=== PATIENT | male | born 1955 | race Caucasian/White ===

== ENCOUNTER 2021-04-23 07:54 | Outpatient (CLI) | payer BC, OTHER, SELFPAY ==
--- NOTE | ~2021-04-23 | CT_ITS ---
EXAMINATION: CT abdomen pelvis w con INDICATION: Abdominal distention, family history of pancreatic cancer TECHNIQUE: Computed tomographic images of the abdomen and pelvis were obtained after the administrati on of 100 cc of Omnipaque 350 intravenous contrast. The dose-length product (DLP) was 1058.52 mGy-cm. Automated exposure control and iterative reconstruction technique were employed. COMPARISON: None available FINDINGS: There is a 6 mm nodule of the left lower lobe on image 13. There is a small sliding hiatal hernia. The heart size is normal. Punctate calcifications in an otherwise normal spleen likely repres ent healed granulomatous disease. The liver, pancreas, gallbladder, and adrenal glands are normal. Th ere is a 2.6 cm soft tissue attenuation mass of the left kidney. Cysts of the right kidney measure up to 1.3 cm. No pathologically enlarged abdominal or pelvic lymph nodes are identified. There is no fr ee intraperitoneal gas or evidence of bowel obstruction. Colonic diverticulosis is present without ev idence of diverticulitis. There is mild lumbar spondylosis. A small fat-containing umbilical hernia i s noted. IMPRESSION: 1. No CT correlate for the patient's symptoms. 2. Indeterminate left kidney mass which could reflect proteinaceous cyst versus neoplasm. Follow-up b y CT or MRI without and with contrast is recommended. Reviewed, dictated and finalized at location B. [facility] [employer] IMPRESSION: 1. No CT correlate for the patient's symptoms. 2. Indeterminate left kidney mass which could reflect proteinaceous cyst versus neoplasm. Follow-up by CT or MRI without and with contrast is recommended.
[2021-04-23 08:13] LABS: Estimated Glomerular Filt Rate > 60
== END 2021-04-23 07:55 | disposition home or self-care (01) ==
LOC: ANHIMG 07:56
PROVIDERS: PCP Internal Medicine; Visit Provider Internal Medicine Gastroenterology
DX: C25.9 Malignant neoplasm of pancreas, unspecified (principal); R14.0 Abdominal distension (gaseous)
CPT/HCPCS: 74177; Q9967

== ENCOUNTER 2021-05-15 14:02 | Outpatient (CLI) | payer BC, OTHER, SELFPAY ==
--- NOTE | ~2021-05-15 | CT_ITS ---
EXAMINATION: CT abdomen pelvis wo/w con EXAM DATE: 05/15/2021 14:36 INDICATION: Renal mass. TECHNIQUE: Spiral CT of the abdomen without contrast followed by both abdomen and pelvis with 100 cc intravenous Omnipaque 350. Axial, coronal and sagittal images of the abdomen and pelvis were reviewe d. The dose-length product (DLP) for this examination was 1342.68 mGy-cm. The exposure was tailored according to patient size (auto mA exposure control), and iterative reconstruction (ASIR) was used a s additional dose reduction technique. Correlation is made to noncontrast CT abdomen pelvis 04/23/2021. FINDINGS: The liver, spleen, adrenal glands and pancreas are unremarkable. Gallbladder is unremarka ble. No biliary obstruction. The left renal lesion in question on prior CT measures 2.4 cm, does no t demonstrate enhancement. It is a mildly proteinaceous cyst requiring no further evaluation. There i s another cyst in the superior pole of the right kidney. The prostate is unremarkable. The bladder is unremarkable. There is no retroperitoneal or pelvic lymphadenopathy. There are small bilateral inguinal fat-containing hernias.. Small umbilical fat-containing hernia. The appendix is normal. There is moderate descending and sigmoid colonic colonic diverticulosis. The re is no adjacent inflammatory change to suggest diverticulitis. There is small sliding gastroesopha geal hiatal hernia. There is expected amount of colonic stool. No free intraperitoneal gas. The heart is normal in size. There are no pericardial or pleural effusions. The lung bases are unremark able. There are no osteoblastic or osteolytic lesions identified. IMPRESSION: 1. Left renal hemorrhagic cyst. No suspicious masses. 2. Moderate colonic diverticulosis. Reviewed, dictated and finalized at location B.
[2021-05-15 14:27] LABS: Estimated Glomerular Filt Rate > 60
== END 2021-05-15 14:03 | disposition home or self-care (01) ==
PROVIDERS: PCP Internal Medicine; Visit Provider Nurse Practitioner Adult Health
DX: N28.89 Other specified disorders of kidney and ureter (principal); K57.30 Diverticulosis of large intestine without perforation or abscess without bleeding
CPT/HCPCS: 74178; Q9967

== ENCOUNTER 2021-09-04 15:39 | Inpatient (IN) | payer BC, OTHER, SELFPAY ==
[2021-09-04] VITALS (13 sets, daily range): BP systolic 143–179; BP diastolic 78–102; PULSE 69–78; RESP 14–20; TEMP 36.4–36.9; O2SAT 15–100; BMI 33.6
--- NOTE | ~2021-09-04 | XR_ITS ---
EXAMINATION: XR chest 2V Exam Date/Time: 09/04/2021 16:10 CDT HISTORY: cp X 5 DAYS, MIDSTERNAL CP, NO CARDIAC HX, NO LUNG HX Comparison: 02/18/2018. RESULT: Lines, tubes, and devices: None. Lungs and pleura: Clear. Cardiomediastinal silhouette: Stable cardiomediastinal silhouette. Other: No acute osseous or upper abdominal finding. IMPRESSION: No acute cardiopulmonary process. Reviewed, dictated and finalized at location K.
--- NOTE | 2021-09-04 05:11 | ECG_ITS ---
Rate 69 SD 188 QRSd 112 QT 391 QTc 420 --[place]-- P 36 QRS 5 T -2 SINUS RHYTHM INTRAVENTRICULAR CONDUCTION DELAY BORDERLINE T WAVE ABNORMALITY- INFERIOR LEADS BASELINE ARTIFACT- III, AVL, V1 BORDERLINE ECG Electronically Signed On 09-06-2021 9:45:15 CDT by Don Olmos D.O. COMPARED TO ECG 09/04/2021 15:50:56 NO SIGNIFICANT CHANGES MTDD
--- NOTE | 2021-09-04 15:46 | ECG_ITS ---
Measurements Intervals [place] Rate: 71 P: 36 IA: 177 QRS: 14 QRSD: 114 T: -2 QT: 389 QTc: 425 Interpretive Statements SINUS RHYTHM INTRAVENTRICULAR CONDUCTION DELAY BORDERLINE T WAVE ABNORMALITY- INFERIOR LEADS BASELINE ARTIFACT- V1 BORDERLINE ECG Electronically Signed On 09-04-2021 15:55:42 CDT by Don Olmos D.O.
[2021-09-04 16:14] LABS: Basophils Absolute Auto 0.1 K/mm3 (0.0-0.1); Eosinophils Absolute Auto 0.1 K/mm3 (0-0.3); Eosinophils Percent Auto 1.6 % (0-4.4); Hematocrit 46.2 % (42.0-52.0); Hemoglobin 15.4 g/dL (14.0-18.0); Immature Granulocyte Absolute 0.01 K/mm3 (0.00-0.031); Immature Granulocyte Percent A 0.1 % (0-0.5); Lymphocytes Absolute Auto 1.92 K/mm3 (0.9-3.2); Lymphocytes Percent Auto 24.9 % (18.3-44.2); Mean Corpuscular HGB Conc 33.3 g/dl (32-36); Mean Corpuscular Hemoglobin 29.4 pg (26-34); Mean Corpuscular Volume 88.2 fl (80-100); Mean Platelet Volume 8.8 fl (7.4-10.4); Monocytes Absolute Auto 0.6 K/mm3 (0.1-0.6); Monocytes Percent Auto 8.1 % (2.6-8.5); Neutrophils Percent Auto 64.3 % (45.5-73.1); Platelet Count Result 259 k/mm3 (150-375); Red Blood Count 5.24 M/mm3 (4.6-6.20); Red Cell Distribution Width 13.2 % (11.5-14.5); White Blood Count 7.7 K/mm3 (4.5-10.0)
--- NOTE | 2021-09-04 16:17 | ED.CHESTPAIN ---
HPI - Chest Pain General Chief Complaint: Chest Pain Stated Complaint: CP Time Seen by Provider: 09/04/21 16:17 History of Present Illness HPI narrative: The patient is a 65-year-old male with a history hyperlipidemia, borderline hypertension presenting to the emergency department for evaluation of chest pain. Patient reports intermittent chest pressure which at times feels gas-like in nature originating from the upper abdomen and radiating to the chest. Patient states that pain has been intermittent over the past few days but last night was at its worst when he had sharp pain into his left shoulder. Patient denies any current pain at the time of assessment. He reports a stress test many years ago but denies history of heart attack or stent placement. He has borderline hypertension which improved with regular diet changes and exercise although patient states that his diet and exercise regimen has suffered in the past few weeks while they have been entertaining numerous family and friends at their house. Patient reports some associated mild nausea with the pain but denies any radiation of the pain to the neck, jaw. Patient denies associated shortness of breath, palpitations. He denies any recent car or air travel. No history of surgery or immobility. Denies lower extremity swelling. Related Data Allergies Allergy/AdvReac Type Severity Reaction Status Date / Time No Known Allergies Allergy Verified 04/12/21 11:10 Review of Systems Review of Systems: CONSTITUTIONAL: Denies fever, chills, or sweats. EYES: Denies visual changes, redness, or discharge. ENT: Denies rhinorrhea, congestion, sore throat, or otalgia. CARDIOVASCULAR: Denies current chest pain, palpitations, or edema. RESPIRATORY: Denies cough or dyspnea. GASTROINTESTINAL: Denies abdominal pain, nausea, vomiting, or diarrhea. GENITOURINARY: Denies dysuria or hematuria. SKIN: Denies rash or itching. MUSCULOSKELETAL: Denies back pain, joint pain, or myalgia. NEUROLOGIC: Denies headache, numbness, or weakness. [facility] Past Medical History Medical History (Updated 09/04/21 @ 17:40 by Kiera Alvarez MD) Esophageal reflux Familial carcinoma of pancreas Gastroesophageal reflux disease Hyperlipidemia Surgical History Surgical History (Updated 09/04/21 @ 17:25 by Sultana Sanon PA-C) History of eye surgery Correction of strabismus as a child. Family History Family History Father Family history of coronary artery disease, Onset Age: 81 Social History Social History (Updated 09/04/21 @ 17:26 by Sultana Sanon PA-C) Social History: Surrogate medical decision maker: Code status: Full code. Smoking status: Former smoker Smoking end date: 02/17/82 Alcohol intake: current Exam Narrative: GENERAL: Awake, alert, conversant HEAD: Normocephalic, atraumatic. EYES: PERRLA and EOMI. ENT: Nares clear, no rhinorrhea or epistaxis. Mucous membranes moist. NECK: Supple. CHEST: No respiratory distress, breathing even and non labored, no chest wall tenderness HEART: Regular rate, sinus rhythm ABDOMEN:Non distended, non tender EXTREMITIES: Normal range of motion. No edema, induration or erythema bilaterally. SKIN: Warm, dry, no rash. NEURO:No focal deficits. Alert and oriented x3 Course Vital Signs Vital signs: Vital Signs Temperature 36.4 C 09/04/21 15:41 Pulse Rate 76 09/04/21 15:41 Respiratory Rate 16 09/04/21 15:41 Blood Pressure 179/95 H 09/04/21 15:41 Pulse Oximetry 99 09/04/21 15:41 Oxygen Delivery Room Air 09/04/21 15:41 Temperature 36.4 C 09/04/21 15:41 Pulse Rate 76 09/04/21 15:41 Respiratory Rate 16 09/04/21 15:41 Blood Pressure 179/95 H 09/04/21 15:41 Pulse Oximetry 99 09/04/21 15:41 Oxygen Delivery Room Air 09/04/21 15:41 MDM - Chest Pain MDM Narrative Medical decision making narrative: Patient presenting to the e
[2021-09-04 16:24] LABS: INR 1.1; Prothrombin Time 13.4 Seconds (11.1-14.7)
[2021-09-04 16:25] LABS: Partial Thromboplastin Time 32.7 SECONDS (22.3-36.8)
[2021-09-04 16:28] LABS: Alanine Aminotransferase 19 U/L (6-50); Albumin Level 4.8 g/dL (3.5-5.1); Alkaline Phosphatase 73 U/L (38-126); Anion Gap 6 mmol/L (8-16); Aspartate Amino Transferase 28 U/L (17-59); Bilirubin,Total 0.9 mg/dL (0.2-1.3); Blood Urea Nitrogen 15 mg/dL (9-20); Calcium 9.1 mg/dL (8.4-10.2); Carbon Dioxide 28 mmol/L (22-30); Chloride 106 mmol/L (98-107); Estimated CRCL calculation 90 ml/min; Estimated Glomerular Filt Rate > 60; Glucose 104 mg/dL (65-110); Lipase 85 U/L (23-300); Potassium 3.8 mmol/L (3.4-5.0); Sodium 140 mmol/L (137-145)
[2021-09-04] MEDS: ASPIRIN 81 MG CHEWABLE TABLET 324 MG PO (16:41)
[2021-09-04] MEDS: HEPARIN SODIUM 5,000 UNITS/ML VIAL 4000 UNITS IV PUSH (17:12)
[2021-09-04] MEDS: HEPARIN SOD/D5W 100 UNITS/ML 25,000 UNITS/250 ML BAG 10 UNITS IV CONT (17:12)
--- NOTE | 2021-09-04 17:30 | PM.IMHP ---
H&P: HPI History of Present Illness Date/Time: 09/04/21 17:30 Chief Complaint: Chest pain. Narrative: This is a pleasant 65-year-old male with history of elevated blood pressure and probable underlying hypertension, hyperlipidemia, and GERD and with a history of severe esophageal erosions and ulcerations on EGD in 2008 who presented to the emergency department from home for evaluation of chest pain. Yesterday while working out in the yard he developed mild tightness in the mid substernal chest region which resolved with rest and later that evening he had some mild discomfort in his left axilla as well. Initially he thought his symptoms may be related to indigestion as his GERD symptoms have been worse since the weekend, which he attributes to having several large meals at family gatherings. This morning he was on the treadmill and approximately 10 minutes into his walk he once again developed mid chest tightness associated with weakness and sweats. The symptoms are not typical of his indigestion and he came in today for evaluation. EKG done on arrival to the ED was reviewed and he has some inverted T waves in inferior leads and his initial troponin came back elevated at 0.100. He is now being admitted in this setting for further evaluation and cardiology consultation. He has no known history of coronary artery disease and he has had several stress tests over the years due to positive family history, all of which have been negative. Prior to the last couple of days he has never had chest pain with exertion. He denies syncope and presyncope. No pleuritic pain or significant shortness of breath. He denies nausea and vomiting. Review of Systems Review of Systems: 12 systems were reviewed. No recent cold or flu symptoms. He received 3 COVID vaccinations thus far. No known COVID exposure. He does snore and is occasionally sleepy during the day, but no overt hypersomnolence. No witnessed apneic episodes. No melena or hematochezia. He denies significant abdominal pain and bloating. No claudication. Except as documented, all other systems were reviewed and are negative. [facility] Past Medical History Medical History Gastroesophageal reflux disease Hyperlipidemia Surgical History Surgical History History of colonoscopy (09/2007) Sigmoid diverticulosis and small internal hemorrhoids History of esophagogastroduodenoscopy (11/2008) Erosive esophagitis with grade 4 ulcerations. Negative for H. pylori and Purcell esophagus. History of eye surgery Correction of strabismus as a child. History of vasectomy Family History Family History Father Coronary artery disease, Onset Age: 48 First [place] at age 48. at age 82. Sibling Heart disease Sister who is 5 years older has a stent. Mother Old age in her 90s Social History Social History (Updated 09/05/21 @ 00:03 by Sultana Sanon PA-C) Social History: Surrogate medical decision maker: Brisa Mojicat, spouse. Code status: Full code. Smoking packs per day: 0.75 Smoking cigarettes per day: 15.0 Years smoked: 20 Smoking pack-years: 15.00 Smoking status: Former smoker Smoking end date: 02/17/82 Alcohol intake: current Drinks per week: 1 Substance use: never Living arrangements: with family Additional living arrangements comments: The patient lives with his in [place]. 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 Spiritual care concerns: No Meds Home Medications and Allergies Home Medications Medication Instructions Recorded Confirmed Type pantoprazole 40 mg tablet,delayed 40 mg PO QA #90 tabs 04/12/21 09/04/21 Rx release atorvastatin 20 mg tablet 30 mg PO DAILY 09/04/21
--- NOTE | 2021-09-04 18:11 | PM.CNCAR ---
Assessment and Plan Assessment and plan (1) Non-ST elevation DE (NSTEMI): Code(s): I21.4 - Non-ST elevation (NSTEMI) myocardial infarction Status: Acute Assessment and Plan: Patient presents with ACS, symptoms of concern for unstable angina. Minor EKG changes Elevated troponin Started on heparin, aspirin and metoprolol after discussion with Dr. Alvarez Counseled patient and his about our concerns with his ACS and possible outcomes. Recommend cardiac catheterization for tomorrow morning. Discussed possibility of medical therapy, stent, lesions that are not amenable to stenting that may require special equipment or heart surgery, etc, depending on the patient's anatomy. Reviewed possible risks and complications with patient including breathing problems, bleeding problems, blood vessel problems, unanticipated surgery, allergic reactions, kidney problems, CVA, DE, and among others. Discussed possibility of stenting and possible need for DAPT. Discussed the possibility that if DAPT is interrupted stent thrombosis can occur resulting in heart attack and . Patient understands risks and desires to proceed. Patient advised to call the nurse if he has further problems overnight. TNG and morphine if needed overnight EKG in the a.m. Emergent cardiac catheterization if the patient has ongoing chest discomfort (2) Elevated blood pressure reading in office without diagnosis of hypertension: Code(s): R03.0 - Elevated blood-pressure reading, without diagnosis of hypertension Status: Acute Assessment and Plan: Likely has hypertension. Started on metoprolol. (3) Hyperlipidemia: Code(s): E78.5 - Hyperlipidemia, unspecified Status: Chronic Assessment and Plan: Currently taking atorvastatin 20 mg daily. 01/2021 LDL cholesterol was 106 Increase to 80 mg daily History of Present Illness History of Present Illness Consult date/time: 09/04/21 18:11 Reason For Visit: NSTEMI Narrative: Estuardo Carroll is a 65-year-old male whom we were asked to see at request of Dr. Alvarez for our advice and opinion regarding his elevated troponins and chest discomfort in consultation. Mr. Carroll has had family from out of town, and fell he over ate, having a lot of gas, heartburn and chest discomfort recently which he thought was GERD. However, this discomfort worsened. When he walked on the treadmill yesterday, he developed more discomfort and pressure in his chest as well as weakness which was quite unusual and made him stop. It resolved. He did some yard work in the same thing happened. Last night while in bed he had some more discomfort which radiated to the axilla. It resolved after a little while. This morning he tried to walk on the treadmill again and had the same problems, so came to the emergency room for further evaluation. No shortness of breath or diaphoresis. The patient has a history hyperlipidemia and borderline hypertension. He has a history of GERD and esophageal problems as well, but no GI bleeding. His father had an DE when he was 48 years old. Review of Systems Constitutional: Constitutional: Denies fever(s) Eyes: Eyes: Denies blurry vision ENT: Denies epistaxis Cardiovascular: Cardiovascular: Reports chest pain, Denies pedal edema, Denies lightheadedness and Denies dyspnea Respiratory: Respiratory: Denies chest congestion and Denies dyspnea Gastrointestinal: Gastrointestinal: Denies abdominal pain, Reports bloating, Denies hematochezia, Reports heartburn and Denies nausea Comments: History of esophageal problems on ulcers but no actual bleeding. Genitourinary: Genitourinary: Denies hematuria Musculoskeletal: Musculoskeletal: Reports no additional musculoskeletal
--- NOTE | 2021-09-04 18:22 | ADMGEN ---
This patient, Estuardo Carroll, was admitted to IMU Room 211-01 at 1820. Patient/family oriented to hospital policies and general routines including ID bracelet, bed and alarms, visiting hours, pain management, procedures, bathroom and other care routines, personal items, smoking policy, room service/diet, and visiting hours. Information on how to activate the Rapid Response Team has been discussed. Patient/Family are encouraged to report perceived risks to care and to ask questions if they do not understand what they are told or what they should do.
[2021-09-04 18:23] LABS: SARS-CoV-2 RNA PCR Negative
[2021-09-04 20:34] LABS: Troponin I 0.134 ng/mL (0.000-0.034)
[2021-09-04] MEDS: METOPROLOL TARTRATE 25 MG TABLET PO (21:20)
[2021-09-04 22:55] LABS: Partial Thromboplastin Time 74.2 SECONDS (22.3-36.8)
[2021-09-04 23:07] LABS: Troponin I 0.156 ng/mL (0.000-0.034)
[2021-09-05] VITALS (34 sets, daily range): BP systolic 119–164; BP diastolic 65–94; PULSE 49–84; RESP 13–17; TEMP 36.1–36.7; O2SAT 15–98
[2021-09-05 05:15] LABS: Basophils Absolute Auto 0.1 K/mm3 (0.0-0.1); Eosinophils Absolute Auto 0.1 K/mm3 (0-0.3); Eosinophils Percent Auto 1.3 % (0-4.4); Hematocrit 42.8 % (42.0-52.0); Hemoglobin 14.6 g/dL (14.0-18.0); Immature Granulocyte Absolute 0.03 K/mm3 (0.00-0.031); Immature Granulocyte Percent A 0.4 % (0-0.5); Lymphocytes Absolute Auto 2.12 K/mm3 (0.9-3.2); Lymphocytes Percent Auto 25.8 % (18.3-44.2); Mean Corpuscular HGB Conc 34.1 g/dl (32-36); Mean Corpuscular Hemoglobin 29.9 pg (26-34); Mean Corpuscular Volume 87.5 fl (80-100); Mean Platelet Volume 9.2 fl (7.4-10.4); Monocytes Absolute Auto 0.7 K/mm3 (0.1-0.6); Monocytes Percent Auto 7.9 % (2.6-8.5); Neutrophils Absolute Auto 5.2 K/mm3 (1.3-6.7); Neutrophils Percent Auto 63.6 % (45.5-73.1); Platelet Count Result 248 k/mm3 (150-375); Red Blood Count 4.89 M/mm3 (4.6-6.20); White Blood Count 8.2 K/mm3 (4.5-10.0)
[2021-09-05 05:20] LABS: Anion Gap 6 mmol/L (8-16); Blood Urea Nitrogen 16 mg/dL (9-20); Calcium 9.2 mg/dL (8.4-10.2); Carbon Dioxide 29 mmol/L (22-30); Chloride 104 mmol/L (98-107); Estimated CRCL calculation 89 ml/min; Estimated Glomerular Filt Rate > 60; Glucose 97 mg/dL (65-110); Magnesium 2.2 mg/dL (1.6-2.3); Sodium 139 mmol/L (137-145)
[2021-09-05 05:23] LABS: Partial Thromboplastin Time 61.6 SECONDS (22.3-36.8)
[2021-09-05] MEDS: HEPARIN SODIUM 5,000 UNITS/ML VIAL 3500 UNITS IV PUSH (05:59)
--- NOTE | 2021-09-05 08:00 | ECG_ITS ---
Measurements Intervals [place] Rate: 61 P: 49 [place]: 192 QRS: 22 QRSD: 108 T: -8 QT: 422 QTc: 426 Interpretive Statements SINUS RHYTHM BORDERLINE T WAVE ABNORMALITY- INFERIOR LEADS BASELINE ARTIFACT- III, AVF BORDERLINE ECG Electronically Signed On 09-05-2021 22:16:07 CDT by Don Olmos D.O.
[2021-09-05] MEDS: ASPIRIN 81 MG CHEWABLE TABLET PO (08:38)
[2021-09-05] MEDS: METOPROLOL TARTRATE 25 MG TABLET PO (08:38)
[2021-09-05] MEDS: ATORVASTATIN 40 MG TABLET 80 MG PO (08:38)
[2021-09-05] MEDS: PANTOPRAZOLE 40 MG TABLET PO (08:39)
[2021-09-05] MEDS: SODIUM CHLORIDE 0.9% IV 500 ML 100 ML IV CONT (08:45)
--- NOTE | 2021-09-05 09:21 | WPDHPUPDATE1 ---
History and Physical Update Update Date/Time: 09/05/21 09:21 History and Physical has been reviewed, including an updated exam of the patient. Admitted with ACS/non STEMI. One episode of very slight chest pressure through the night but otherwise doing well. Remains on heparin drip. Troponins up to 0.1 6. EKG without new changes. Otherwise, There are NO changes in the patient's condition. Patient is anxious, several questions. Risks, benefits, and alternatives have been discussed and questions answered. Patient agrees to proceed with procedure.
--- NOTE | 2021-09-05 09:22 | WPDMODSED ---
Moderate Sedation Note-Pt Data Patient Data Diagnosis: NSTEMI Present Complaint: 65-year-old male admitted with indigestion and chest pressure. Elevated troponins up to 0.16. Started on heparin drip for non-STEMI. Procedure to be performed/Plan: Conscious sedation Cardiac catheterization Possible PCI Allergies Allergy/AdvReac Type Severity Reaction Status Date / Time No Known Allergies Allergy Verified 04/12/21 11:10 Home Medications Medication Instructions Recorded Confirmed Type pantoprazole 40 mg tablet,delayed 40 mg PO QAM #90 tabs 04/12/21 09/04/21 Rx release atorvastatin 20 mg tablet 30 mg PO DAILY 09/04/21 09/04/21 History Current Medications: Active Medications Acetaminophen (Acetaminophen 325 Mg Tablet) 650 mg PO Q4H PRN PRN Reason: Pain Rated 1-3 Aspirin (Aspirin 81 Mg Chewable Tablet) 81 mg PO DAILY@0800 [facility] Last Admin: 09/05/21 08:38 Dose: 81 mg Atorvastatin Calcium (Atorvastatin 40 Mg Tablet) 80 mg PO DAILY [facility] Last Admin: 09/05/21 08:38 Dose: 80 mg Heparin Sodium (Porcine) (Heparin Sodium 5,000 Units/Ml Vial) 4,000 units IV PUSH PRN PRN PRN Reason: aPTT less than 55 seconds Heparin Sodium (Porcine) (Heparin Sodium 5,000 Units/Ml Vial) 3,500 units IV PUSH PRN PRN PRN Reason: aPTT 55 - 70 seconds Last Admin: 09/05/21 05:59 Dose: 3,500 units Heparin Sodium/Dextrose (Heparin Sodium/D5w 100 Units/Ml) 25,000 units in 250 mls @ 12 mls/hr IV CONT .[id number] [facility]; Protocol Last Titration: 09/05/21 05:59 Dose: 1,200 units/hr, 12 mls/hr Sodium Chloride (Normal Saline Iv) 500 mls @ 100 mls/hr IV CONT .Q5H [facility] Last Admin: 09/05/21 08:45 Dose: 100 mls/hr Metoprolol Tartrate (Metoprolol Tartrate 25 Mg Tablet) 25 mg PO Q12HR [facility] Last Admin: 09/05/21 08:38 Dose: 25 mg Morphine Sulfate (Morphine Sulfate (*Crx) 2 Mg/Ml Inj) 2 mg IV PUSH Q4H PRN PRN Reason: Pain Rated 4-6 Nitroglycerin (Nitroglycerin Sl 0.4 Mg Tablet) 0.4 mg SUBLINGUAL Q5MIN PRN PRN Reason: Chest Pain Ondansetron HCl (Ondansetron Inj 4 Mg/2 Ml Vial) 4 mg IV PUSH Q4H PRN PRN Reason: Nausea Pantoprazole Sodium (Pantoprazole 40 Mg Tablet) [facility] [place] Admin: 09/05/21 08:39 Dose: 40 mg Sedation/Anesthesia: No previous sedation/anesthesia problems (including family history). [facility] Past Medical History Medical History Gastroesophageal reflux disease Hyperlipidemia Surgical History Surgical History History of colonoscopy (09/2007) Sigmoid diverticulosis and small internal hemorrhoids History of esophagogastroduodenoscopy (11/2008) Erosive esophagitis with grade 4 ulcerations. Negative for H. pylori and Purcell esophagus. History of eye surgery Correction of strabismus as a child. History of vasectomy Family History Family History Father Coronary artery disease, Onset Age: 48 First [place] at age 48. at age 82. Sibling Heart disease Sister who is 5 years older has a stent. Mother Old age in her 90s Social History Social History Social History: Surrogate medical decision maker: Brisa Carroll, spouse. Code status: Full code. Smoking packs per day: 0.75 Smoking cigarettes per day: 15.0 Years smoked: 20 Smoking pack-years: 15.00 Smoking status: Former smoker Smoking end date: 02/17/82 Alcohol intake: current Drinks per week: 1 Substance use: never Living arrangements: with family Additional living arrangements comments: The patient lives with his in [place]. 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 Spiritual care concerns: No Mod Sed Physical Exam Physical Exam Pre Procedural Exam: Normal: Appearance, Eyes, Ears
--- NOTE | 2021-09-05 09:45 | PM.IMPN ---
Progress Note: A&P Assessment and Plan (1) Non-ST elevated myocardial infarction: Code(s): I21.4 - Non-ST elevation (NSTEMI) myocardial infarction Status: Acute Assessment and Plan: Symptoms concerning for angina. EKG shows minor T-wave changes as detailed above. Given elevated troponin level he has been started on a heparin drip as well as aspirin and metoprolol. Case discussed with Dr. Valderrama and she is recommending cardiac catheterization in the morning and he will be NPO after midnight. Nitroglycerin and morphine available if needed. Patient advised to alert the nurse if he has worsening chest pain or with any other concerns this evening. 09/05: Patient with NSTEMI, heart catheterization plan today, appreciate cardiology consultation, continue heparin drip Update: Patient had stent of RCA, heparin drip off, Cardiology ordered aspirin 81 mg daily, Lipitor 80 mg daily, Plavix 75 mg daily (2) Elevated blood pressure reading: Code(s): R03.0 - Elevated blood-pressure reading, without diagnosis of hypertension Status: Acute Assessment and Plan: Likely has underlying hypertension. He has been started on metoprolol as above and we will monitor blood pressures closely. 09/05: Blood pressure reasonably controlled, continue to monitor (3) Hyperlipidemia: Code(s): E78.5 - Hyperlipidemia, unspecified Status: Chronic Assessment and Plan: Continue atorvastatin at increased dose of 80 mg daily. (4) Gastroesophageal reflux disease: Code(s): K21.9 - Gastro-esophageal reflux disease without esophagitis Status: Acute Assessment and Plan: Continue PPI. Plan Full code DVT prophylaxis with heparin drip Subjective Date/time seen: 09/05/21 09:45 Interval history: Saw patient after catheterization. He states he has no chest pain, no shortness of breath. He feels well.? No nausea, vomiting or diarrhea.? No fevers or chills. Review of Systems Review of Systems: ?12 point review of systems was assessed and was negative except as noted in the HPI Exam Narrative: General:??No acute distress, alert and oriented per baseline HEENT:? Atraumatic, normocephalic, mucous membranes moist CV:? Regular rate and rhythm, S1, S2 Lungs:? Clear to auscultation bilaterally, no rales or crackles noted, no wheezes, good air entry Abdomen:? Soft, nontender, nondistended Extremities:? Normal to inspection Skin:? No rashes noted, no lesions or wounds seen Psych:? Euthymic, normal affect Objective Data Vital Signs Vital Signs: Vital Signs - 24 hr 09/04/21 15:41 09/04/21 16:30 09/04/21 16:31 Temperature 97.6 F Pulse Rate 76 73 69 Respiratory Rate 16 20 15 Blood Pressure 179/95 H 154/93 H Pulse Oximetry 99 100 Oxygen Delivery Room Air 09/04/21 16:45 09/04/21 17:00 09/04/21 17:32 Temperature Pulse Rate 76 72 Respiratory Rate 15 16 Blood Pressure Pulse Oximetry 98 98 99 Oxygen Delivery 09/04/21 17:45 09/04/21 18:00 09/04/21 18:01 Temperature Pulse Rate Respiratory Rate Blood Pressure 178/102 H Pulse Oximetry 99 97 99 Oxygen Delivery 09/04/21 18:20 09/04/21 18:20 09/04/21 20:00 Temperature 97.7 F 98.4 F Pulse Rate 75 72 71 Respiratory Rate 14 Blood Pressure 151/91 H 143/78 H Pulse Oximetry 100 15 L Oxygen Delivery 09/04/21 21:20 09/04/21 20:00 09/04/21 22:00 Temperature Pulse Rate 78 74 74 Respiratory Rate Blood Pressure Pulse Oximetry Oxygen Delivery 09/04/21 20:00 09/05/21 00:00 09/05/21 00:00 Temperature Pulse Rate 74 74 58 L Respiratory Rate 14 14 Blood Pressure Pulse Oximetry 15 L 15 L Oxygen Delivery Room Air Room Air 09/05/21 00:00 09/05/21 02:00 09/05/21 04:00 Temperature 98.1 F Pulse Rate 61 59 L 54 L Respiratory Rate 15 Blood Pressure 147/85 H Pulse Oximetry 98 Oxygen Delivery 09/05/21 04:00 09/05/21 04:00
--- NOTE | 2021-09-05 10:51 | PC.NURSE ---
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 Family at bedside
--- NOTE | 2021-09-05 11:49 | PM.OP ---
Procedure Note - Brief Procedure Note - Brief Date of procedure: 09/05/21 Pre-op diagnosis: NSTEMI ACS, NSTEMI Post-op diagnosis: Same Procedure performed: Conscious sedation Left heart cath Description of procedure: Uneventful cardiac cath Surgeon: Flores Valderrama MD Findings: 95% stenosis of large prox/mid RCA Disease of mid LAD Mild inferior wall hypokinesis Plan: RCA stent Medical tx of residual dz
--- NOTE | 2021-09-05 11:51 | WPDCARDPROC ---
Cardiac Cath Procedure Note Date of procedure:: 09/05/21 Performing physician:: Flores Valderrama MD Indication:: ACS, non-STEMI Brief clinical history:: 65-year-old male admitted with unstable angina, and non-STEMI. Procedure Procedure performed:: Conscious sedation Left heart catheterization Selective coronary angiography Left ventriculography Sedation/Medication given:: Conscious sedation: The patient has no known prior history of adverse affects of conscious sedation. Oropharynx was clear. The patient is deemed a good candidate for conscious sedation. Conscious sedation began at: 1106 Conscious sedation ended at: 1131 Total conscious sedation time: 25 min Medications: Versed 1 mg, fentanyl 50 mcg IVP The patient had continuous hemodynamic monitoring, and was also continuously monitored by: Miquel Samuels RN The patient tolerated conscious sedation well. Access site:: Right femoral artery Estimated blood loss:: 5 cc Procedure note:: Catheters: 5 Kuwaiti arterial sheath, 5 Kuwaiti 4 cm right and left Wallace catheters, 5 Kuwaiti pigtail catheter 6 [place]i arterial she Detailed procedure: After informed consent the patient brought to the laboratory secretary and the right femoral area was prepped and draped in the usual fashion. After conscious sedation and local anesthesia the right femoral artery was punctured and cannulated with the arterial sheath. Selective Coronary angiography was performed with the coronary catheters in multiple projections. These were withdrawn. The pigtail catheter was advanced into the central circulation and left ventricle for pressure measurements and left ventriculography which was performed in the FLOYD projection. This was withdrawn. The images were reviewed with the patient and with Dr. Boswell. I recommended proceeding with PCI of the RCA which is detailed in a separate report. Findings:: Pressures: Post angiographic aortic pressure was 140/70 and LV was 140/20 mmHg. Left coronary artery: There was calcified plaque along the proximal and mid Left anterior descending and circumflex vessels. The left main was widely patent. The mid Left anterior descending had a long segment of diffuse moderate stenosis. The diagonal was large vessel, almost as large as the Left anterior descending, and had 40% stenosis in its mid segment. A ramus branch was free of significant disease. The circumflex basically gave rise to just a very large 1st obtuse marginal which had 40% stenosis of the proximal and mid segments. There were [id number] collaterals noted. Right coronary artery: The large dominant right coronary artery had proximal vessel calcification. There was a very irregular complex although short lesion in the proximal segment of 95% stenosis. Left ventriculogram: Left ventriculography revealed mild hypokinesis of the inferior wall. Ejection fraction is 60%. Conclusion:: 95% stenosis of the proximal right coronary artery Left to right collaterals Moderate long diffuse stenosis of the mid Left anterior descending Calcification of the proximal coronary vessels Mild disease elsewhere Mild left ventricular dysfunction with hypokinesis of the inferior wall, ejection fraction 60% Assessment and Plan Assessment and plan (1) Non-ST elevation MA (NSTEMI): Code(s): I21.4 - Non-ST elevation (NSTEMI) myocardial infarction Status: Acute Plan Proceeded with angioplasty and stenting of the culprit right coronary artery with Dr. Boswell. Will treat the remaining disease aggressively medically, and perhaps re-evaluate the Left anterior descending disease with an outpatient stress test. However, the LAD may not be easily amenable to PCI as the stenotic area is long and the LAD is a narrow caliber vessel. Additional Plan as above
--- NOTE | 2021-09-05 11:59 | ECG_ITS ---
Measurements Intervals [place] Rate: 52 P: 49 WI: 194 QRS: 33 QRSD: 110 T: -9 QT: 445 QTc: 415 Interpretive Statements SINUS BRADYCARDIA T WAVE ABNORMALITY IN INFERIOR LEADS- CONSIDER ISCHEMIA ABNORMAL ECG Electronically Signed On 09-05-2021 22:34:08 CDT by Don Olmos D.O.
--- NOTE | 2021-09-05 12:03 | WPDCARDPROC ---
Cardiac Cath Procedure Note Date of procedure:: 09/05/21 Performing physician:: Michael Boswell MD Indication:: acute coronary syndrome Brief clinical history:: this is a 65-year-old patient without previous knowledge of coronary disease presents to the hospital acute onset of exertional chest pain. There is evidence of acute coronary syndrome with elevated troponin. Angiography was just completed in this laboratory a demonstrating a culprit lesion to be a high-grade proximal stenosis large dominant right coronary artery. Procedure Procedure performed:: PCI(SARIAH) to the proximal RCA Sedation/Medication given:: no additional sedation Access site:: right femoral artery Estimated blood loss:: minimal Procedure note:: the patient was in the labor and delivery nurse on the table from the just completed angiography. A 6 Syriac sheath was in the right femoral artery. The patient was then systemically anticoagulated bolus and infusion of Angiomax. He received 600 mg of clopidogrel orally. Following this I engaged the right coronary artery using a 6 Syriac JR4 guiding catheter. A 0.014 BMW wire was used to traverse the stenosis and advanced easily into the distal RPL branch. Following this the target lesion was pre-dilated using a 3.5 x 20 mm Vinod balloon at nominal pressure for 60 seconds. Following this there was approximately 20% residual stenosis. The target lesion was then treated with a 4 x 26 mm Orsiro sirolimus eluting stent deployed at 12 atmospheres with no residual stenosis no disruption dissection or distal embolization. Findings:: Successful PCI of proximal RCA lesion as detailed above Conclusion:: patient to recovery following PCI dual anti-platelet therapy, beta-jordan and statin will be continued. Patient has moderate left coronary lesions as described above in the labor and delivery nurse note which will be treated medically at this time. Michael Boswell MD [facility]
--- NOTE | 2021-09-05 16:30 | PC.NURSE ---
Pt returned from sugar laboratory assistant, via bed
[2021-09-05] MEDS: SODIUM CHLORIDE 0.9% IV 1,000 ML 125 ML IV CONT (16:32)
--- NOTE | 2021-09-05 16:43 | SUR.PHASEII ---
Pt resting comfortably in bed, hematoma site soft, 3+ pedal pulse. Dinner tray orders, report given to Kenzie SALOMON. Pt denies pain, respirations even and unlabored, VSS, pt voided 25ml urine prior to transfer to hospital room.
[2021-09-06] VITALS (8 sets, daily range): BP systolic 122–137; BP diastolic 69–76; PULSE 53–69; RESP 15–16; TEMP 36.5–37.1; O2SAT 97–99
[2021-09-06 04:54] LABS: Basophils Absolute Auto 0.1 K/mm3 (0.0-0.1); Basophils Percent Auto 0.9 % (0.2-1.2); Eosinophils Absolute Auto 0.1 K/mm3 (0-0.3); Eosinophils Percent Auto 1.6 % (0-4.4); Hematocrit 42.5 % (42.0-52.0); Hemoglobin 14.3 g/dL (14.0-18.0); Immature Granulocyte Absolute 0.02 K/mm3 (0.00-0.031); Immature Granulocyte Percent A 0.2 % (0-0.5); Lymphocytes Absolute Auto 1.52 K/mm3 (0.9-3.2); Lymphocytes Percent Auto 17.7 % (18.3-44.2); Mean Corpuscular HGB Conc 33.6 g/dl (32-36); Mean Corpuscular Hemoglobin 29.9 pg (26-34); Mean Corpuscular Volume 88.9 fl (80-100); Mean Platelet Volume 8.6 fl (7.4-10.4); Monocytes Absolute Auto 0.6 K/mm3 (0.1-0.6); Monocytes Percent Auto 7.3 % (2.6-8.5); Neutrophils Absolute Auto 6.2 K/mm3 (1.3-6.7); Neutrophils Percent Auto 72.3 % (45.5-73.1); Platelet Count Result 216 k/mm3 (150-375); Red Blood Count 4.78 M/mm3 (4.6-6.20); Red Cell Distribution Width 12.9 % (11.5-14.5); White Blood Count 8.6 K/mm3 (4.5-10.0)
[2021-09-06 05:11] LABS: Alanine Aminotransferase 15 U/L (6-50); Alkaline Phosphatase 60 U/L (38-126); Anion Gap 4 mmol/L (8-16); Aspartate Amino Transferase 26 U/L (17-59); Blood Urea Nitrogen 16 mg/dL (9-20); Calcium 8.6 mg/dL (8.4-10.2); Carbon Dioxide 29 mmol/L (22-30); Chloride 103 mmol/L (98-107); Estimated CRCL calculation 80 ml/min; Estimated Glomerular Filt Rate > 60; Glucose 94 mg/dL (65-110); Potassium 4.1 mmol/L (3.4-5.0); Sodium 136 mmol/L (137-145)
[2021-09-06] MEDS: ASPIRIN 81 MG CHEWABLE TABLET PO (08:23)
[2021-09-06] MEDS: ATORVASTATIN 40 MG TABLET 80 MG PO (08:23)
[2021-09-06] MEDS: PANTOPRAZOLE 40 MG TABLET PO (08:23)
[2021-09-06] MEDS: CLOPIDOGREL BISULFATE 75 MG TABLET PO (08:23)
[2021-09-06] MEDS: METOPROLOL TARTRATE 25 MG TABLET PO (08:23)
--- NOTE | 2021-09-06 10:10 | PM.DS ---
DS: Admitting Diagnosis Discharge Date September 06, 2021 Admitting Diagnosis chest pain DS: Discharge Diagnosis Discharge Diagnosis (1) Non-ST elevated myocardial infarction: Code(s): I21.4 - Non-ST elevation (NSTEMI) myocardial infarction Status: Acute Assessment and Plan: Symptoms concerning for angina. EKG shows minor T-wave changes as detailed above. Given elevated troponin level he has been started on a heparin drip as well as aspirin and metoprolol. Case discussed with Dr. Valderrama and she is recommending cardiac catheterization in the morning and he will be NPO after midnight. Nitroglycerin and morphine available if needed. Patient advised to alert the nurse if he has worsening chest pain or with any other concerns this evening. 09/05: Patient with NSTEMI, heart catheterization plan today, appreciate cardiology consultation, continue heparin drip Update: Patient had stent of RCA, heparin drip off, Cardiology ordered aspirin 81 mg daily, Lipitor 80 mg daily, Plavix 75 mg daily, metoprolol 25 mg twice daily 09/06: Heart catheterization yesterday with PCI to RCA, cardiology recommending discharging on dual anti-platelet therapy, high-intensity statin, beta-jordan, due to bradycardia, patient will be switched to metoprolol succinate 12.5 mg q.h.s. (2) Elevated blood pressure reading: Code(s): R03.0 - Elevated blood-pressure reading, without diagnosis of hypertension Status: Acute Assessment and Plan: Likely has underlying hypertension. He has been started on metoprolol as above and we will monitor blood pressures closely. 09/05: Blood pressure reasonably controlled, continue to monitor (3) Hyperlipidemia: Code(s): E78.5 - Hyperlipidemia, unspecified Status: Chronic Assessment and Plan: Continue atorvastatin at increased dose of 80 mg daily. (4) Gastroesophageal reflux disease: Code(s): K21.9 - Gastro-esophageal reflux disease without esophagitis Status: Acute Assessment and Plan: Continue PPI. 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 He tolerated the procedure well and was discharged in good condition with close outpatient follow-up and dual anti-platelet therapy, high-intensity statin, beta-jordan. See above for details. Time Spent with Patient Time attestation: Total time spent providing and/or coordinating discharge services: Exam Narrative: General:??No acute distress, alert and oriented per baseline HEENT:? Atraumatic, normocephalic, mucous membranes moist CV:? Regular rate and rhythm, S1, S2 Lungs:? Clear to auscultation bilaterally, no rales or crackles noted, no wheezes, good air entry Abdomen:? Soft, nontender, nondistended Extremities:? Normal to inspection Skin:? No rashes noted, no lesions or wounds seen Psych:? Euthymic, normal affect DS: Data Data Completed and Pending Labs on day of discharge: Labs from last 24 hours 09/06/21 09/06/21 04:42 04:42 WBC 8.6 RBC 4.78 Hgb 14.3 Hct 42.5 MCV 88.9 MCH 29.9 MCHC 33.6 RDW 12.9 Plt Count 216 MPV 8.6 Immature Gran % (Auto) 0.2 Neut % (Auto) 72.3 Lymph % (Auto) 17.7 L Cottle % (Auto) 7.3 Eos % (Auto) 1.6 Baso % (Auto) 0.9 Lymph # (Auto) 1.52 Cottle # (Auto) 0.6 Eos # (Auto) 0.1 Baso # (Auto) 0.1 Abs Immat Gran (auto) 0.02 Absolute Neuts (auto) 6.2 Absolute Nucleated RBC 0.0 Nucleated RBC % 0.0 Sodium 136 L Potassium 4.1 Chloride 103 Carbon Dioxide 29 Anion Gap 4 L BUN 16 Creatinine 1.00 Estim Creat Clear Calc 80 Estimated GFR > 60 Glucose 94 Calcium 8.6 Total Bilirubin 1.0 AST 26 ALT 15 Alkaline Phosphatase 60 Total Protein 7.0 Albumin 4.0 Discharge Plan Discharge
--- NOTE | 2021-09-06 10:46 | PM.PNCARD ---
Progress Note: A&P Assessment and Plan (1) Non-ST elevation MD (NSTEMI): Code(s): I21.4 - Non-ST elevation (NSTEMI) myocardial infarction Status: Acute Assessment and Plan: S/p coronary angiogram, angioplasty and stenting of the culprit RCA lesion. Also has remaining disease in the LAD that is being treated medically. Continue DAPT without interruption for 1 year Continue atorvastatin Continue aggressive risk factor modification for CAD Cardiac rehab Outpatient follow-up in 2-3 weeks Okay for discharge today from a cardiac perspective Subjective Date/time seen: 09/06/21 10:46 Cardiology follow up for CAD Feels great this morning. No chest pain, shortness of breath. Has been ambulating around the room with no issues. Had some mild bradycardia overnight. No arrhythmias. Review of Systems Constitutional: Constitutional: Denies fever(s) Eyes: Eyes: Denies blurry vision ENT: Denies epistaxis Cardiovascular: Cardiovascular: Reports chest pain, Denies pedal edema, Denies lightheadedness and Denies dyspnea Respiratory: Respiratory: Denies chest congestion and Denies dyspnea Gastrointestinal: Gastrointestinal: Denies abdominal pain, Reports bloating, Denies hematochezia, Reports heartburn and Denies nausea Genitourinary: Genitourinary: Denies hematuria Musculoskeletal: Musculoskeletal: Reports no additional musculoskeletal complaints Integumentary/Breasts: Skin/Breast: Reports system reviewed and no additional complaints, except as docu Neurologic: Reports system reviewed and no additional complaints, except as documented, Denies behavioral changes and Denies confusion Psychiatric: Psychiatric: Denies behavioral changes and Denies confusion Exam Const: General: cooperative, healthy appearing and comfortable; No confusion Orientation/consciousness: oriented to person, patient oriented x3 and No confusion HENMT: Mouth: Yes moist mucous membranes Eyes: EOM: EOMs intact bilaterally Neck: Neck: supple Thyroid: thyroid normal Carotids: no bruits Resp: Effort & Inspection: normal respiratory effort Auscultation: clear to auscultation bilaterally Cardio: Rate: regular rate Rhythm: regular rhythm Heart sounds: Murmur heart sound present (2/6 KEVIN at the left mid and lower sternal borders) Other: Intact pedal pulses GI: Inspection: normal to inspection Skin: General skin exam: no rashes or lesions noted Other: Right groin arterial access site free from bleeding, hematoma, or bruit. Mild ecchymosis noted. Neuro: General: oriented to person, patient oriented x3 and No confusion Extrem: Right lower extremity: no edema Left lower extremity: no edema Psych: Appearance: grossly normal Mental Status: mental status grossly normal Objective Data Vital Signs Vital Signs: Vital Signs - 24 hr 09/05/21 12:15 09/05/21 12:15 09/05/21 12:30 Temperature Pulse Rate 53 L 53 L Pulse Rate [Bilateral Pedal (Dorsalis Pedis)] 53 L Respiratory Rate 14 15 Blood Pressure 141/84 H 136/86 Pulse Oximetry 93 93 Oxygen Delivery Room Air Room Air 09/05/21 12:30 09/05/21 12:45 09/05/21 12:47 Temperature Pulse Rate 56 L Pulse Rate [Bilateral Pedal (Dorsalis Pedis)] 53 L 56 L Respiratory Rate 14 Blood Pressure 131/80 Pulse Oximetry 95 Oxygen Delivery Room Air 09/05/21 13:00 09/05/21 13:00 09/05/21 13:30 Temperature Pulse Rate 55 L 56 L Pulse Rate [Bilateral Pedal (Dorsalis Pedis)] 56 L Respiratory Rate 16 17 Blood Pressure 129/81 144/83 H Pulse Oximetry 93 97 Oxygen Delivery Room Air Room Air 09/05/21 13:30 09/05/21 14:00 09/05/21 14:00 Temperature Pulse Rate 57 L Pulse Rate [Bilateral Pedal (Dorsalis Pedis)] 56 L 57 L Respiratory Rate 15 Blood Pressure 131/79 Pulse Oximetry 95 Oxygen Delivery Room Air 09/05/21 15:10 09/05/21 15:10 09/05/21 15:30 Temperature Pulse Rate 56 L 57 L Pulse Rate [Bilateral Pedal (Cheo
== END 2021-09-06 12:14 | disposition home or self-care (01) | DRG 247 ==
LOC: ANHED 17:40 → ANHIMU 17:40
PROVIDERS: Emergency Medicine; Internal Medicine Cardiovascular Disease; Physician Assistant; Specialist; Admitting Provider Internal Medicine; Emergency Provider Emergency Medicine; PCP Internal Medicine; Visit Provider Student in an Organized Health Care Education/Training Program
PROC: 4A023N7 Measurement of Cardiac Sampling and Pressure, Left Heart, Percutaneous Approach (ICD-10-PCS; CPT 93452; principal; 2021-09-05 11:15)
PROC: 027034Z Dilation of Coronary Artery, One Artery with Drug-eluting Intraluminal Device, Percutaneous Approach (ICD-10-PCS; 2021-09-05 11:15)
DX: I21.4 Non-ST elevation (NSTEMI) myocardial infarction (principal); I25.10 Atherosclerotic heart disease of native coronary artery without angina pectoris; I10 Essential (primary) hypertension; E78.5 Hyperlipidemia, unspecified; K21.9 Gastro-esophageal reflux disease without esophagitis; Z20.822 Contact with and (suspected) exposure to COVID-19; Z87.891 Personal history of nicotine dependence; Z79.899 Other long term (current) drug therapy
CPT/HCPCS: 36415; 71046; 80048; 80053; 83690; 83735; 84484; 85025; 85610; 85730; 93005; 93458; 96374; 99285; A9270; C1725; C1769; C1874; C1887; C1894; C9600; C9803; J0583; J1644; J2250; J3010; J7030; J7040; U0003; U0005

== ENCOUNTER 2021-09-24 13:53 | Emergency (ER) | payer BC, OTHER, SELFPAY ==
[2021-09-24] VITALS (24 sets, daily range): BP systolic 130–160; BP diastolic 75–104; PULSE 55–68; RESP 12–24; TEMP 36.8; O2SAT 97–100
--- NOTE | ~2021-09-24 | XR_ITS ---
XR chest 2V DATE: 09/24/2021 14:41 INDICATION: Chest pain, pressure following stent placement TECHNIQUE: 2 views COMPARISON: 09/04/2021 PA and lateral chest FINDINGS: Normal heart size. No hilar or mediastinal enlargement. No pulmonary infiltrate or consolid ation, pleural effusion or pulmonary vascular congestion or pneumothorax. IMPRESSION: No active cardiopulmonary disease Reviewed, dictated and finalized at location B.
--- NOTE | 2021-09-24 13:53 | ECG_ITS ---
Measurements Intervals [place] Rate: 59 P: 50 [place]: 181 QRS: 22 QRSD: 110 T: 28 QT: 409 QTc: 408 Interpretive Statements SINUS BRADYCARDIA OTHERWISE NORMAL ECG COMPARED TO ECG 09/05/2021 12:40:18 INFERIOR T-WAVE ABNORMALITY IS IMPROVED Electronically Signed On 09-24-2021 14:41:07 CDT by Michael Boswell M.D.
[2021-09-24 14:08] LABS: Basophils Absolute Auto 0.1 K/mm3 (0.0-0.1); Basophils Percent Auto 1.2 % (0.2-1.2); Eosinophils Absolute Auto 0.1 K/mm3 (0-0.3); Eosinophils Percent Auto 1.7 % (0-4.4); Hematocrit 44.2 % (42.0-52.0); Immature Granulocyte Absolute 0.02 K/mm3 (0.00-0.031); Immature Granulocyte Percent A 0.3 % (0-0.5); Lymphocytes Absolute Auto 1.44 K/mm3 (0.9-3.2); Mean Corpuscular HGB Conc 33.9 g/dl (32-36); Mean Corpuscular Hemoglobin 29.8 pg (26-34); Mean Corpuscular Volume 87.7 fl (80-100); Mean Platelet Volume 8.8 fl (7.4-10.4); Monocytes Absolute Auto 0.5 K/mm3 (0.1-0.6); Monocytes Percent Auto 6.2 % (2.6-8.5); Neutrophils Absolute Auto 5.4 K/mm3 (1.3-6.7); Neutrophils Percent Auto 71.6 % (45.5-73.1); Platelet Count Result 255 k/mm3 (150-375); Red Blood Count 5.04 M/mm3 (4.6-6.20); Red Cell Distribution Width 12.9 % (11.5-14.5); White Blood Count 7.6 K/mm3 (4.5-10.0)
[2021-09-24 14:21] LABS: INR 1.1; Prothrombin Time 13.4 Seconds (11.1-14.7)
[2021-09-24 14:22] LABS: Partial Thromboplastin Time 30.8 SECONDS (22.3-36.8)
[2021-09-24 14:28] LABS: Alanine Aminotransferase 23 U/L (6-50); Albumin Level 4.8 g/dL (3.5-5.1); Alkaline Phosphatase 91 U/L (38-126); Anion Gap 10 mmol/L (8-16); Aspartate Amino Transferase 30 U/L (17-59); Bilirubin,Total 1.2 mg/dL (0.2-1.3); Blood Urea Nitrogen 10 mg/dL (9-20); Calcium 9.1 mg/dL (8.4-10.2); Carbon Dioxide 29 mmol/L (22-30); Chloride 101 mmol/L (98-107); Estimated CRCL calculation 88 ml/min; Estimated Glomerular Filt Rate > 60; Glucose 108 mg/dL (65-110); Lipase 110 U/L (23-300); Potassium 4.2 mmol/L (3.4-5.0); Sodium 140 mmol/L (137-145)
[2021-09-24 14:39] LABS: Troponin I < 0.012 ng/mL (0.000-0.034)
--- NOTE | 2021-09-24 17:24 | ED.CHESTPAIN ---
HPI - Chest Pain General Chief Complaint: Chest Pain Stated Complaint: chest pain History of Present Illness HPI narrative: Patient is a 65-year-old male who presents ER with central chest discomfort. Feels like burning and also like a chest just laid on his center of the sternum. He woke up early this morning its been constant since then. Has felt it intermittently over the last week. Recently had a cardiac stent placed. He has been compliant with his Plavix. No exertional chest pain. No sweats. Denies fevers or chills. Has a stress test scheduled for 2 days from now and close follow-up after that. Related Data Allergies Allergy/AdvReac Type Severity Reaction Status Date / Time No Known Allergies Allergy Verified 09/24/21 15:17 Review of Systems Review of Systems: All systems reviewed & are unremarkable except as noted in HPI and below Constitutional: Constitutional: Denies chills and Denies fever(s) ENT: Denies nasal congestion and Denies sore throat Cardiovascular: Cardiovascular: Reports chest pain, Denies radiating jaw, neck or arm pain and Denies slow heart rate Respiratory: Respiratory: Denies cough, Denies dyspnea and Denies wheezing Gastrointestinal: Gastrointestinal: Denies abdominal pain, Reports heartburn, Denies diarrhea and Denies nausea PMFSH Past Medical History Medical History Gastroesophageal reflux disease Hyperlipidemia Surgical History Surgical History History of colonoscopy (09/2007) Sigmoid diverticulosis and small internal hemorrhoids History of esophagogastroduodenoscopy (11/2008) Erosive esophagitis with grade 4 ulcerations. Negative for H. pylori and Purcell esophagus. History of eye surgery Correction of strabismus as a child. History of vasectomy Family History Family History Father Coronary artery disease, Onset Age: 48 [place] at age 48. at age 82. Sibling Heart disease Sister who is 5 years older has a stent. Mother Old age in her 90s Social History Social History Social History: Surrogate medical decision maker: Brisa Carroll, spouse. Code status: Full code. Smoking packs per day: 0.75 Smoking cigarettes per day: 15.0 Years smoked: 20 Smoking pack-years: 15.00 Smoking status: Former smoker Smoking end date: 02/17/82 Alcohol intake: current Drinks per week: 1 Substance use: never Additional living arrangements comments: The patient lives with his in [place]. 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 Spiritual care concerns: No Exam Narrative: GENERAL: Well-appearing, well-nourished, and in no acute distress. HEAD: Normocephalic, atraumatic. EYES: PERRL and EOMI. CHEST: Clear to auscultation. No respiratory distress. HEART: Regular rate and rhythm. Normal peripheral pulses. ABDOMEN: Soft, nontender, nondistended. EXTREMITIES: Normal range of motion. No edema. SKIN: Warm, dry, no rash. NEURO: Alert and oriented x3. PSYCH: Normal mood and affect. Course Course Emergency Course: Patient resting comfortably. Discussed case with Dr. Meraz with cardiology. Recommend giving patient GI cocktail and repeating troponin. He feels the pain is atypical for ACS. Patient has a normal EKG when compared to previous. After GI cocktail patient has improvement of discomfort and has a pain of 0/10. Patient reports he has family in town and they have been eating out. He recently had some jalapeno poppers. Vital Signs Vital signs: Vital Signs Temperature 98.2 F 09/24/21 14:00 Pulse Rate 64 09/24/21 14:00 Respiratory Rate 18 09/24/21 14:00 Blood Pressure 156/86 H 09/24/21 14:00 Pulse Oximetry 97 09/24/21 14:00 Oxygen Del
[2021-09-24] MEDS: BELLADONNA ALK/PHENOB ELIX 10 ML, MAG HYDROX/ALUMINUM HYD/SIMETH 30 ML, LIDOCAINE HCL 2... PO (17:42)
[2021-09-24 18:07] LABS: Troponin I < 0.012 ng/mL (0.000-0.034)
== END 2021-09-24 20:25 | disposition home or self-care (01) ==
PROVIDERS: Emergency Medicine; Emergency Provider Emergency Medicine; PCP Internal Medicine
DX: R07.89 Other chest pain (principal); K21.9 Gastro-esophageal reflux disease without esophagitis; E78.5 Hyperlipidemia, unspecified; Z87.891 Personal history of nicotine dependence; R00.1 Bradycardia, unspecified
CPT/HCPCS: 36415; 71046; 80053; 83690; 84484; 85025; 85610; 85730; 93005; 99284; A9270

== ENCOUNTER 2021-12-20 09:45 | Outpatient (RCR) | payer BC, MEDICARE, OTHER, SELFPAY | END 2022-01-07 10:19 | disposition home or self-care (01) | LOC: ANHCPREHAB 09:45 | PROVIDERS: PCP Internal Medicine; Visit Provider Internal Medicine Cardiovascular Disease | DX: Z95.5 Presence of coronary angioplasty implant and graft (principal) | CPT/HCPCS: 93798 ==

== ENCOUNTER 2024-06-15 13:27 | Outpatient (CLI) | payer MEDICARE, BC, OTHER, SELFPAY ==
--- NOTE | ~2024-06-15 | CT_ITS ---
CT Scan of the Chest without Contrast: Clinical Indication: Aortic root dilatation Technique: Contiguous sections were acquired throughout the chest without intravenous contrast. Dose reduction technique was used on this scan by utilizing automated exposure control and iterative recon struction technique. The dose-length product (DLP) was 389.43 mGy-cm. Findings: There is no evidence of any significant mediastinal, hilar or axillary lymphadenopathy. Ascending aor ta is dilated to 4.4 cm in maximal diameter. Coronary artery calcifications are present. There is no evidence of pleural or pericardial effusion. There is mild biapical scarring. Calcified right upper lobe granuloma present. Images through the upper abdomen reveal no abnormalities. Impression: 4.4 cm ascending aortic aneurysm. No significant pulmonary abnormality. Reviewed, dictated and finalized at [facility]. Impression: 4.4 cm ascending aortic aneurysm. No significant pulmonary abnormality.
--- OUTSIDE RECORDS SUMMARY | 2024-06-15 14:48 | XMS_ITS | Referral Summary ---
Author Organization [place] [address] [address] [place] [phone] Care Team Providers Care Underwriting Intern Name Role Phone Lorenzo Sequeira DO Primary Care Provider [phone]- [phone] Encounters Date Type Department Care Team Description 06/04/2024 Results Follow-Up [facility] Cardiology [address] [place] [phone] Vivek Salas MD Aortic root dilation (Primary Dx) 06/01/2024 11:15 AM CDT Ancillary Procedure [facility] Cardiology [address] [place] [address] [place] [phone] 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[place] igloo coronary artery of mary's igloo heart without angina pectoris 05/19/2024 Telephone [facility] Cardiology [address] [place] [address] [address] [place] [address] Vivek Salas MD 04/29/2024 8:30 AM CDT Office Visit [facility] Cardiology [address] [place] [address] [place] [phone] Vivek Salas MD 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[place] ig[place] coronary artery of mary[place] heart without angina pectoris (Primary Dx); Hypercholesteremia; Gastroesophageal reflux disease without esophagitis; Essential hypertension from Last 3 Months Allergies No known active allergies Medications aspirin 81 mg chewable tablet [address] (PROTONIX) 40 mg EC tablet Take 1 tablet (40 mg total) by mouth daily 2 Active nitroglycerin (NITROSTAT) 0.[address] 1 tablet (0.4 mg total) under the tongue every 5 (five) minutes as needed for chest pain After 3 tabs call 911 90 tablet 3 Active losartan (COZAAR) 25 mg tabletIndications :Essential hypertension Take 1 tablet (25 mg total) by mouth daily 30 tablet 11 5 05/20/19 26 Active rosuvastatin (CRESTOR) 40 mg tabletIndications :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 coronary artery of mary[place] heart without angina pectoris,Hypercho lesteremia Take 1 tablet (40 mg total) by mouth daily 90 tablet 2 5 06/01/19 26 Active rosuvastatin (CRESTOR) 40 mg tabletIndications :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 coronary artery of mary[place] ig[place] heart without angina pectoris,Hypercho lesteremia Take 1 tablet (40 mg total) by mouth daily 90 tablet 3 4 06/01/19 25 Discontinu ed(Reorder ) Active Problems Problem Noted Date Diagnosed Date Essential hypertension 04/29/2024 Elevated blood pressure reading 04/09/2023 Gastroesophageal reflux disease without esophagi tis 04/18/2022 Coronary artery disease invo lving mary's ig[place] coronary artery of mary's ig[place] heart without angina pectoris 04/16/2022 H/O non-ST elevation myocardial infarction (NSTE TN) 04/16/2022 Hypercholesteremia 04/16/2022 Left leg pain 04/16/2022 Social History Tobacco Use Types Packs/Day Years Used Date Smoking Tobacco: Former Cigarettes 1 10 0 09/17/1974 - 07/18/1984 Cigars Smokeless Tobacco: Former Chew Quit: 09/18/1999 Tobacco Cessation:Counseling Given: Not Answered AUDIT-C Answer Date Recorded Q1: How often do you have a drink containing alc ohol? 2-4 times a month 12/21/2021 Q2: How many drinks containi ng alcohol do you have on a typical day when you are drinking? 1 or 2 12/21/2021 Q3: How often do you have si x or more drinks on one occasion? 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 Gender Identity Not on file Sexual Orientation Not on file Last Filed Vital Signs Vital Sign Reading Time Taken Comments Blood Pressure 135/85 04/29/2024 8:46 AM CDT Pulse 65 04/29/2024 8:34 AM CDT Temperature - - Respiratory Rate - - Oxygen Saturation 97% 04/29/2024 8:34 AM CDT Inhaled Oxygen Concentration - - Weight 109.3 kg (241 lb) 04/29/2024 8:34 AM CDT Height 177.8 cm (5' 10 ) 04/29/2024 8:34 AM CDT Body Mass Index 34.58 04/29/2024 8:34 AM CDT Plan of Treatment Not on file Procedures Procedure Name Priority Date/Time Associated Diagnosis Comments TRANSTHORACIC ECHO (TTE) COMPLETE W DOPPLER/CF WO CONTRAST Routine 06/01/2024 11:28 AM CDT 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 ig[place] coronary artery of mary's ig[place] heart without angina pectoris BASIC METABOLIC PANEL Routine 05/28/2024 11:00 AM CDT Essential hypertension POCT LIPID PANEL Routine 04/29/2024 7:37 AM CDT 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 coronary artery of mary's ig[place] heart without angina pectoris Hypercholesteremia from Last 3 Months Results * TRANSTHORACIC ECHO (TTE) COMPLETE W DOPPLER/CF WO CONTRAST (06/01/2024 11:28 AM CDT) Anatomical Region Laterality Modality Ultrasound 06/01/2024 11:0 6 AM CDT Narrative 06/01/2024 12:26 PM CDT [facility] Cardiology [address], [place] [address] [address] [facility] [address], [place] [address] P:[phone] P:[phone] Echocardiographic Report Patient Name: JEAN-PAUL LUTZ : 1955 Study Date: 06/01/2024 11:06:51 AM Gender: M Tech: SW Location: [facility] Provider: VIVEK SALAS Height(Cm): 178 BSA: 2.32 Weight(Kg): 109.3 Heart Rate: 70 BP: 135 / 85 Quality: Good Order Provider: VIVEK SALAS PROCEDURES: Echocardiographic Report: Transthoracic echocardiogram with complete 2D, M-Mode, and color Doppler examination. INDICATIONS: Coronary Artery Disease. MEASUREMENTS: 2D/MM Value Range Doppler Value Range EF Mod BP 64 % [ 52 - 72 ] DAYANA Vmax 2.19 cm2 [ 2.00 - 4.00 ] EF Teich MM 66 % [ 52 - 72 ] AV Mean PG 5 mmHg LVIDd 2D 4.77 cm [ 4.20 - 5.80 ] AV Peak Lino 1.55 m/s [ 1.00 - 1.70 ] LVIDd MM 5.00 cm [ 4.20 - 5.80 ] AV Peak PG 10 mmHg LVIDs 2D 3.22 cm [ 2.50 - 4.00 ] AV VTI 35.99 cm LVIDs MM 3.18 cm [ 2.50 - 4.00 ] LVOT Diam 2.21 cm [ 1.70 - 2.10 ] LVPWd 2D 0.87 cm [ 0.60 - 1.00 ] LVOT Peak Lino 0.88 m/s [ 0.70 - 1.10 ] LVPWd MM 1.17 cm [ 0.60 - 1.00 ] LVOT VTI 21.27 cm IVSd 2D 1.04 cm [ 0.60 - 1.00 ] MV E Peak Lino 0.75 m/s [ 0.60 - 1.30 ] IVSd MM 1.52 cm [ 0.60 - 1.00 ] MV A Peak Lino 0.89 m/s [ 1.00 - 1.20 ] LA Dimension MM 2.85 cm [ 3.00 - 4.00 ] MV Decel Time 175 msec [ 104 - 258 ] AoR Diam MM 4.67 cm [ 3.10 - 3.70 ] PV Peak Lino 1.06 m/s [ 0.40 - 0.80 ] LA Volume Index 19 cc/m2 [ 16 - 34 ] TR Peak Lino 2.05 m/s [ 1.00 - 2.80 ] ACS MM 1.49 cm [ 1.50 - 2.60 ] TR Peak PG 17 mmHg RVSP 25.00 mmHg [ 10.00 - 36.00 ] Lateral E` 0.09 m/s [ 0.10 - 0.15 ] E` 0.06 m/s E/E` 8 2D/MM Value Range Doppler Value Range - FINDINGS: Interpretation Site: Exam was interpreted at [facility]. Left Ventricle: Indeterminate diastolic function. Ejection fraction is measured at 64 %. Global Longitudinal Strain is -18 %. The left ventricle is normal in size and systolic function. The left ventricular ejection fraction is visually estimated to be 60-65%. Resting Segmental Wall Motion Analysis: Total wall motion score is 1.00. There are no regional wall motion abnormalities. Right Ventricle: Normal right ventricular size. Normal right ventricular systolic function. Left Atrium: The left atrium is normal in size. Right Atrium: The right atrium is normal in size. Atrial Septum: Normal atrial septum. Mitral Valve: Normal appearance of the mitral valve. No mitral valve regurgitation is seen. Aortic Valve: The aortic valve is trileaflet and opens well. There is trace aortic regurgitation. Tricuspid Valve: Normal appearance of the tricuspid valve. Right ventricular systolic pressure could not be estimated due to inadequate visualization of the tricuspid regurgitation jet. Trivial regurgitation in the tricuspid valve. Pulmonic Valve: Pulmonic valve not well visualized. Pericardium: Normal pericardium with no significant pericardial effusion. Aorta: The aortic root at the level of the sinus of Valsalva measures 4.1 cm in diameter. IVC: The IVC is not well visualized. CONCLUSIONS: There is normal biventricular size and systolic function. There is no regional wall motion abnormality in the left ventricle. Normal biatrial size. No significant valvular abnormalities. The aortic root at the level of the sinus of Valsalva measures 4.1 cm in diameter. Electronically Signed By: Dr. Andrea Liang 06/01/2024 12:25:46 PM CDT Procedure Note Andrea Liang MD - 06/01/2024 [facility] Cardiology [address], [place] [address] [address] [facility] [address], [place] [address] P:[phone] P:[phone] Echocardiographic Report Patient Name: JEAN-PAUL LUTZ : 1955 Study Date: 06/01/2024 11:06:51 AM Gender: M Tech: Location: [facility] Provider: VIVEK SALAS Height(Cm): 178 BSA: 2.32 Weight(Kg): 109.3 Heart Rate: 70 BP: 135 / 85 Quality: Good Order Provider: VIVEK SALAS PROCEDURES: Echocardiographic Report: Transthoracic echocardiogram with complete 2D, M-Mode, and color Dopplerexamination. INDICATIONS: Coronary Artery Disease. MEASUREMENTS: 2D/MM Value Range Doppler ValueRange EF Mod BP 64 % [ 52 - 72 ] DAYANA Vmax 2.19cm2 [ 2.00 - 4.00 ] EF Teich MM 66 % [ 52 - 72 ] AV Mean PG 5mmHg LVIDd 2D 4.77 cm [ 4.20 - 5.80 ] AV Peak Lino 1.55m/s [ 1.00 - 1.70 ] LVIDd MM 5.00 cm [ 4.20 - 5.80 ] AV Peak PG 10mmHg LVIDs 2D 3.22 cm [ 2.50 - 4.00 ] AV VTI 35.99cm LVIDs MM 3.18 cm [ 2.50 - 4.00 ] LVOT Diam 2.21 cm[ 1.70 - 2.10 ] LVPWd 2D 0.87 cm [ 0.60 - 1.00 ] LVOT Peak Lino 0.88m/s [ 0.70 - 1.10 ] LVPWd MM 1.17 cm [ 0.60 - 1.00 ] LVOT VTI 21.27cm IVSd 2D 1.04 cm [ 0.60 - 1.00 ] MV E Peak Lino 0.75m/s [ 0.60 - 1.30 ] IVSd MM 1.52 cm [ 0.60 - 1.00 ] MV A Peak Lino 0.89m/s [ 1.00 - 1.20 ] LA Dimension MM 2.85 cm [ 3.00 - 4.00 ] MV Decel Time 175msec [ 104 - 258 ] AoR Diam MM 4.67 cm [ 3.10 - 3.70 ] PV Peak Lino 1.06m/s [ 0.40 - 0.80 ] LA Volume Index 19 cc/m2 [ 16 - 34 ] TR Peak Lino 2.05m/s [ 1.00 - 2.80 ] ACS MM 1.49 cm [ 1.50 - 2.60 ] TR Peak PG 17mmHg RVSP 25.00 mmHg [ 10.00 - 36.00 ] Lateral E` 0.09 m/s [ 0.10 - 0.15 ] E` 0.06 m/s E/E` 8 2D/MM Value Range Doppler ValueRange - FINDINGS: Interpretation Site: Exam was interpreted at [facility]. Left Ventricle: Indeterminate diastolic function. Ejection fraction is measured at 64 %.Global Longitudinal Strain is -18 %. The left ventricle is normal in size andsystolic function. The left ventricular ejection fraction is visually estimated to be60-65%. Resting Segmental Wall Motion Analysis: Total wall motion score is 1.00. There are no regional wall motionabnormalities. Right Ventricle: Normal right ventricular size. Normal right ventricular systolicfunction. Left Atrium: The left atrium is normal in size. Right Atrium: The right atrium is normal in size. Atrial Septum: Normal atrial septum. Mitral Valve: Normal appearance of the mitral valve. No mitral valve regurgitation isseen. Aortic Valve: The aortic valve is trileaflet and opens well. There is trace aorticregurgitation. Tricuspid Valve: Normal appearance of the tricuspid valve. Right ventricular systolicpressure could not be estimated due to inadequate visualization of the tricuspidregurgitation jet. Trivial regurgitation in the tricuspid valve. Pulmonic Valve: Pulmonic valve not well visualized. Pericardium: Normal pericardium with no significant pericardial effusion. Aorta: The aortic root at the level of the sinus of Valsalva measures 4.1 cm indiameter. IVC: The IVC is not well visualized. CONCLUSIONS: There is normal biventricular size and systolic function. There is noregional wall motion abnormality in the left ventricle. Normal biatrial size. No significant valvular abnormalities. The aortic root at the level of the sinus of Valsalva measures 4.1 cm indiameter. Electronically Signed By: Dr. Andrea Liang 06/01/2024 12:25:46 PM CDT Vivek Salas MD CV ECHO PROCEDURES Final Result * Basic metabolic panel (05/28/2024 11:00 AM CDT) [facility] Glucose 90 70 - 99 mg/dL [facility] - 01 BUN 14 8 - 27 mg/dL [facility] - 01 Creatinine, Serum 1.14 0.76 - 1.27 mg/dL [facility] - 01 eGFR 70 >59 mL/min/1.73 [facility] - 01 BUN/creat ratio 12 10 - 24 [facility] - 01 Sodium 138 134 - 144 mmol/L [facility] - 01 Potassium, sr 5.0 3.5 - 5.2 mmol/L [facility] - 01 Chloride 100 96 - 106 mmol/L [facility] - 01 CO2 24 20 - 29 mmol/L [facility] - 01 Calcium 9.3 8.6 - 10.2 mg/dL [facility] - 01 Blood 05/28/2024 11:0 0 AM CDT 05/28/2024 Narrative [facility] - 05/29/2024 7:09 AM CDT Performed at: 01 - [address] [id number] [employer]modation Support Worker: Stanley Bazzi PhD, Phone: [phone] Vivek Salas MD LAB BLOOD ORDERABLES Ritika l Result [facility] - 01 * POCT lipid panel (04/29/2024 7:37 AM CDT) Cholesterol, POC 158 mg/dL HDL, POC 78 mg/dL Triglycerides, POC 113 mg/dL LDL Cholesterol POC 58 mg/dL Chol/HDL Ratio, POC 0.7 Non-HDL Cholesterol, POC 81 mg/dL Cholesterol Total, POC 158 mg/dL Capillary blood 04/29/2024 7 :37 AM CDT us Vivek Salas MD POINT OF CARE TEST ORDERA BLES Final Result from Last 3 Months Insurance [facility] FEDERAL MEDICARE [employer] MEDICARE [facility] [place] [address] [place] [address] Care Teams Underwriting Intern Relationship Specialty Start Date End Date Lorenzo Sequeira DO PCP - General Internal Medicine 12/21/21
--- OUTSIDE RECORDS SUMMARY | 2024-06-15 14:48 | XMS_ITS | Clinical Summary ---
Author Organization [facility] [address] Address [address] [place] [address] Care Team Providers Care Client Service Supervisor Name Role Phone Lorenzo Sequeira DO Primary Care Provider +1- [phone] Allergies No known active allergies Medications aspirin [...] 40 mg tabletIndications :Coronary artery disease involving [place] coronary artery of [place] heart without angina pectoris,Hypercho lesteremia Take 1 tablet (40 mg total) by mouth daily 90 tablet 2 5 06/01/19 26 Active rosuvastatin (CRESTOR) 40 mg tabletIndications :Coronary artery disease involving [place] coronary artery of [place] heart without angina pectoris,Hypercho lesteremia Take 1 tablet (40 mg total) by mouth daily 90 tablet 3 4 06/01/19 25 Discontinu ed(Reorder ) Active Problems Problem Noted Date Diagnosed Date Essential hypertension 04/29/2024 Elevated blood pressure reading 04/09/2023 Gastroesophageal reflux disease without esophagi tis 04/18/2022 Coronary artery disease invo lving [place] coronary artery of [place] heart without angina pectoris 04/16/2022 H/O non-ST elevation myocardial infarction (NSTE CA) 04/16/2022 Hypercholesteremia 04/16/2022 Left leg pain 04/16/2022 Encounters Date Type Department Care Team Description 06/04/2024 Results Follow-Up [facility] Cardiology [address] [facility] [address], [place] [address] Vivek Salas MD Aortic root dilation (Primary Dx) 06/01/2024 11:15 AM CDT Ancillary Procedure [facility] Cardiology [address] [facility] [address] [place] [phone] Coronary artery disease involving [place] coronary artery of [place] heart without angina pectoris 05/19/2024 Telephone [facility] Cardiology [address] [place] [address] [address] [place] [phone] Vivek Salas MD 04/29/2024 8:30 AM CDT Office Visit [facility] Cardiology [address] [place] [address] [address] [place] [phone] Vivek Salas MD Coronary artery disease involving [place] coronary artery of [place] heart without angina pectoris (Primary Dx); Hypercholesteremia; Gastroesophageal reflux disease without esophagitis; Essential hypertension from Last 3 Months Surgical History Surgery Date Site/Laterality Comments COLONOSCOPY ESOPHAGOGASTRODUODENOSCOPY STRABISMUS SURGERY VASECTOMY CAROTID STENT Medical History Medical History Date Comments Gastroesophageal reflux disease Hyperlipidemia Coronary artery disease NSTEMI (non-ST elevated myocardial infarction) ( HCC) Heart disease Sep 05 2021 Family History Medical History Relation Name Comments Cancer Brother Ashvin Coronary artery disease Father [place] Heart attack Father [place] Heart attack Mother Romia Cancer Sister 2 Genet Heart disease Sister 3 Doming[place] Cancer Son Alan Relation Name Status Comments Brother Ashvin Father [place] (Age 82) Mother Romia Alive Sister 1 Alive Sister 2 Genet Sister 3 Dominga Son Alan Social History Tobacco Use Types Packs/Day Years [...] on file 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 Gender Identity Not on file Sexual Orientation Not on file Obstetrics History Last Filed Vital Signs Vital Sign Reading [...] 04/29/2024 8:34 AM CDT Plan of Treatment Health Maintenance Due Date Last Done Comments Colon Cancer Screening-Colonoscopy 1955 Depression Screening 1955 Fall Risk Assessment 1955 Hepatitis C Screening 1955 Prostate Cancer Screening-PSA 1955 Hepatitis B Screening 1974 Pneumococcal vaccine 65+ (1 of 1 - PCV) 2006 Abdominal Aortic Aneurysm (A AA) Screen 2021 Well Visit 65+ 2021 DTaP/Tdap/Td Vaccine (3 - Td or Tdap) 02/17/2023 02/17/2013, 02/23/2010 Covid-19 Vaccine (4 - 2023-2 5 season) 2023 12/22/2020, 04/05/2020, 03/13/2020 Influenza Vaccine (Season Ended) 2024 12/22/2020, 10/21/2019, 12/14/2018, Additional history exists Zoster Vaccine Completed 12/27/2019, 10/21/2019 Procedures Procedure Name Priority Date/Time Associated Diagnosis Comments TRANSTHORACIC ECHO (TTE) COMPLETE W DOPPLER/CF WO CONTRAST Routine 06/01/2024 11:28 AM CDT Coronary artery disease involving [place] coronary artery of [place] heart without angina pectoris BASIC METABOLIC PANEL Routine 05/28/2024 11:00 AM CDT Essential hypertension POCT LIPID PANEL Routine 04/29/2024 7:37 AM CDT Coronary artery disease involving [place] coronary artery of [place] heart without angina pectoris Hypercholesteremia from Last 3 Months Results * TRANSTHORACIC ECHO (TTE) COMPLETE W DOPPLER/CF WO CONTRAST (06/01/2024 11:28 AM CDT) Anatomical Region Laterality Modality Ultrasound 06/01/2024 11:0 6 AM CDT Narrative 06/01/2024 12:26 PM CDT [facility] [address] [facility] [address] [id number] [address] [facility] [address], [place] [address] P:[phone] P:[phone] Echocardiographic Report Patient Name: JEAN-PAUL LUTZ : 1955 Study Date: 06/01/2024 11:06:51 AM Gender: M Tech: Location: [facility] Provider: VIVEK SALAS Height(Cm): 178 BSA: 2.32 [...] FINDINGS: Interpretation Site: Exam was interpreted at [facility]. Left Ventricle: Indeterminate diastolic function. Ejection fraction [...] Procedure Note Andrea Liang MD - 06/01/2024 [facility] Cardiology [address] [facility] [address] [address] [address] [facility] [address], [place] [address] P:[phone] P:[phone] Echocardiographic Report Patient Name: JEAN-PAUL LUTZ : 1955 Study Date: 06/01/2024 11:06:51 AM Gender: M Tech: Location: [place] Ref Provider: VIVEK SALAS Height(Cm): 178 BSA: 2.32 [...] FINDINGS: Interpretation Site: Exam was interpreted at [facility]. Left Ventricle: Indeterminate diastolic function. Ejection fraction [...] Basic metabolic panel (05/28/2024 11:00 AM CDT) Glucose 90 70 - 99 mg/dL [facility] [...] 7:09 AM CDT Performed at: 01 - [facility] [id number] Associate Professor Of Media Arts: Stanley Bazzi PhD, Phone: [phone] Vivek Salas MD LAB BLOOD ORDERABLES Ritika l Result [facility] - 01 * POCT lipid panel (04/29/2024 7:37 AM CDT) Cholesterol, POC 158 mg/dL HDL, POC 78 mg/dL Triglycerides, POC 113 mg/dL LDL Cholesterol POC 58 mg/dL Chol/HDL Ratio, POC 0.7 Non-HDL Cholesterol, POC 81 mg/dL Cholesterol Total, POC 158 mg/dL Capillary blood 04/29/2024 7 :37 AM CDT Vivek Salas MD POINT OF CARE TEST ORDERA BLES Final Result from Last 3 Months Insurance [facility] FEDERAL MEDICARE [employer] [facility] MEDICARE [facility] FEDERAL FOR LIFE Care Teams Client Service Supervisor Relationship Specialty Start Date End Date Lorenzo Sequeira DO PCP - General Internal Medicine 12/21/21
== END 2024-06-15 13:28 | disposition home or self-care (01) ==
PROVIDERS: PCP Internal Medicine; Visit Provider Internal Medicine Cardiovascular Disease
DX: I77.810 Thoracic aortic ectasia (principal)
CPT/HCPCS: 71250